=== PATIENT | male | born 1965 | race American Indian/Alaskan Native ===

== ENCOUNTER 2017-01-15 09:16 | Emergency (ER) | payer SELFPAY ==
[2017-01-15 10:55] LABS: Bilirubin,Urine NEG (Negative); Blood,Urine NEG (Negative); Ketones,Urine NEG (Negative); Leukocyte Esterase,Urine NEG (Negative); Mucus,Urine FEW /HPF; Nitrite,Urine NEG (Negative); Protein,Urine <15 mg/dL mg/dL (Negative); Urobilinogen,Urine < 2.0 mg/dL (<2.0)
[2017-01-15] MEDS ORDERED: ROCEPHIN IM ONE (13:10)
[2017-01-15] MEDS ORDERED: XYLOCAINE 1% MPF 5 mL INFILTRATI ONE (13:10)
--- NOTE | 2017-01-15 13:15 | Emergency Department Report ---
ED Male HPI - General Chief complaint: Urogenital-Male Stated complaint: ABD PAIN/BLOOD IN URINE/POSS UTI Time Seen by Provider: 01/15/17 12:54 Source: patient Mode of arrival: Ambulatory Limitations: No Limitations - History of Present Illness Initial comments: PT c/o 3 days of intermittent suprapubic pain and dysuria. PT states he has also seen some blood in his urine. PT states he is sexually active and he has not had any recent unprotected sex. PT denies penile discharge MD Complaint: dysuria Onset/Timin -: Gradual, days(s) Location: penis Severity scale (0 -10): 7 Quality: other (pt felt like he was urinating out a knife ) Consistency: intermittent Improves with: none Worsens with: urination blood in urine, dysuria. denies: discharge, swelling, mass, rash, urinary retention, nausea/vomiting - Related Data Sexually active: Yes Previous Rx's Medication Instructions Recorded Last Taken Type Doxycycline [Vibramycin CAP] 100 mg PO Q12HR #14 capsule 01/15/17 Unknown Rx Allergies Allergy/AdvReac Type Severity Reaction Status Date / Time No Known Allergies Allergy Verified 01/15/17 09:53 ED Review of Systems ROS: Stated complaint: ABD PAIN/BLOOD IN URINE/POSS UTI Other details as noted in HPI Comment: All other systems reviewed and negative Constitutional: denies: chills, fever Gastrointestinal: abdominal pain. denies: nausea, vomiting Genitourinary: dysuria, hematuria. 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 Absent: conjunctival injection - ENT ENT exam: Present: normal exam, normal external ear exam - Neck Neck exam: Present: normal inspection, full ROM. Absent: lymphadenopathy - Respiratory Respiratory exam: Present: normal lung sounds bilaterally, respiratory distress. Absent: chest wall tenderness - Cardiovascular Cardiovascular Exam: Present: regular rate, normal rhythm, normal heart sounds - GI/Abdominal GI/Abdominal exam: Present: soft. Absent: distended, tenderness, guarding, rebound - Extremities Exam Extremities exam: Present: normal inspection, full ROM - Back Exam Back exam: Present: normal inspection, full ROM. Absent: tenderness, CVA tenderness (R), CVA tenderness (L) - Neurological Exam Neurological exam: Present: alert, oriented X3, normal gait - Psychiatric Psychiatric exam: Present: normal affect, normal mood - Skin Skin exam: Present: warm, dry, intact ED Course Vital Signs 01/15/17 01/15/17 09:55 13:30 Temperature 98.7 F Pulse Rate 90 84 Respiratory 16 16 Rate Blood Pressure 143/98 Blood Pressure 140/91 [Left] O2 Sat by Pulse 99 99 Oximetry - Reevaluation(s) Reevaluation #1: 01/15/17 13:17 PT aware of UA result and plan of care. PT has no questions at this time. - Pulse Oximetry Interpretation Digit-Finger Initial Pulse Oximetry Readin Actions Taken: none ED Medical Decision Making - Lab Data Labs 01/15/17 Unknown Urine Color Yellow Urine Turbidity Clear Urine pH 5.0 Ur Specific [place] 1.025 Urine Protein <15 mg/dl Urine Glucose (UA) Neg Urine Ketones Neg Urine Blood Neg Urine Nitrite Neg Urine Bilirubin Neg Urine Urobilinogen < 2.0 Ur Leukocyte Esterase Neg Urine WBC (Auto) 1.0 Urine RBC (Auto) 6.0 U Epithel Cells (Auto) < 1.0 Urine Mucus Few - Differential Diagnosis uti, std, Critical Care Time: No Critical care attestation.: If time is entered above; I have spent that time in minutes in the direct care of this critically ill patient, excluding procedure time. ED Disposition Clinical Impression: Dysuria, Urethritis Disposition: DC-01 TO HOME OR SELFCARE Is pt being admited?: No Does the pt Need Aspirin: No Condition: Stable Instructions: Nonspecific Urethritis in Men (ED) Additional Instructions: Avoid direct sun exposure when you are on the Doxy. No sex for 7 days after treatment follow up with PCP in 3-5 days have your bp rechecked on follow up Prescriptions: Doxycycline [Vibramycin CAP] 100 mg PO Q12HR #14 capsule Referrals: PRIMARY CARE,MD [Primary Care Provider] - 3-5 Days BONNIE BURRELL MD [Staff Physician] - 3-5 Days [facility] [Outside] - 3-5 Days Forms: STI Treatment and Prevention Time of Disposition: 13:19
[2017-01-15 13:32] VITALS: BP 140/91
== END 2017-01-15 13:30 | disposition home or self-care (01) ==
LOC: ED 09:16
DX: R30.0 Dysuria (principal); N34.2 Other urethritis; F17.200 Nicotine dependence, unspecified, uncomplicated
CPT/HCPCS: 81001; 96372; 99283; J0696

== ENCOUNTER 2020-05-31 14:38 | Emergency (ER) | payer SELFPAY ==
--- NOTE | 2020-05-31 14:52 | Event Note ---
ED Screening Note Date of service: 05/31/20 Time: 14:52 ED Screening Note: Patient complains of syncopal episode and chest pain today States history of hypertension, noncompliant with blood pressure medication x5 months Denies headache This initial assessment/diagnostic orders/clinical plan/treatment(s) is/are subject to change based on patients health status, clinical progression and re- assessment by fellow clinical providers in the ED. Further treatment and workup at subsequent clinical providers discretion. Patient/guardian urged not to elope from the ED as their condition may be serious if not clinically assessed and managed. Initial orders include: Labs EKG Chest x-ray
[2020-05-31 14:53] VITALS: BP 161/98
[2020-05-31] MEDS ORDERED: ZIPRASIDONE MESYLATE 20 MG VIAL IM ONE (18:05)
== END 2020-05-31 17:00 | disposition left against medical advice (07) ==
LOC: ED 14:38
DX: R55 Syncope and collapse (principal); Z53.21 Procedure and treatment not carried out due to patient leaving prior to being seen by health care provider
CPT/HCPCS: 93005; J3486

== ENCOUNTER 2020-09-17 09:56 | Emergency (ER) | payer SELFPAY ==
[2020-09-17 10:06] VITALS: BP 143/103
[2020-09-17] MEDS ORDERED: IBUPROFEN 800 MG TAB PO ONE (10:48)
--- NOTE | 2020-09-17 10:48 | Emergency Department Report ---
ED General Adult HPI - General Chief complaint: Earache Stated complaint: JAW/EAR PAIN Time Seen by Provider: 09/17/20 10:40 Source: patient Mode of arrival: Ambulatory Limitations: No Limitations - History of Present Illness Initial comments: 55-year-old -[place] male patient presents with complaints of right sided jaw and facial pain x a few weeks. Patient states 1 day he was opening his jaw and he felt a sudden pop and had sudden pain. He states it has been a clicking noise and pain with opening and closing the jaw since. He rates his pain as a 10/10 in severity states he has not tried any OTC medications to alleviate his symptoms. The pain radiates into his right ear. He denies any headache, facial swelling, skin changes, fever/chills/sweats, or neck pain. Patient reports history of hypertension states he has been out of his amlodipine 5 mg for 1 month. Patient states he does follow with a PCP. - Related Data Previous Rx's Medication Instructions Recorded Last Taken Type DOXYCYCLINE Hyclate [Vibramycin 100 mg PO Q12HR #14 capsule 01/15/17 Unknown Rx CAP] Naproxen 500 mg PO BID PRN #14 tablet 09/17/20 Unknown Rx amLODIPine 5 mg PO DAILY 30 Days #30 tab 09/17/20 Unknown Rx methocarbamoL [Methocarbamol] 500 - 1,000 mg PO TID PRN #30 09/17/20 Unknown Rx tablet Allergies Allergy/AdvReac Type Severity Reaction Status Date / Time No Known Allergies Allergy Verified 05/31/20 14:49 ED Review of Systems ROS: Stated complaint: JAW/EAR PAIN Other details as noted in HPI Constitutional: denies: chills, diaphoresis, fever, malaise ENT: ear pain. denies: throat pain Respiratory: denies: cough, shortness of breath Cardiovascular: denies: chest pain Musculoskeletal: arthralgia. 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" - Social History Smoking Status: Current Every Day Smoker Substance Use Type: Alcohol - Medications Home Medications: Home Medications Medication Instructions Recorded Confirmed Last Taken Type DOXYCYCLINE Hyclate [Vibramycin 100 mg PO Q12HR #14 capsule 01/15/17 Unknown Rx CAP] Naproxen 500 mg PO BID PRN #14 tablet 09/17/20 Unknown Rx amLODIPine 5 mg PO DAILY 30 Days #30 tab 09/17/20 Unknown Rx methocarbamoL [Methocarbamol] 500 - 1,000 mg PO TID PRN #30 09/17/20 Unknown Rx tablet ED Physical Exam - General Limitations: No Limitations General appearance: alert, in no apparent distress - Head Head exam: Present: atraumatic, normocephalic - Eye Eye exam: Present: normal appearance. Absent: scleral icterus - ENT ENT exam: Present: normal orophraynx, TM's normal bilaterally, normal external ear exam, other (Tenderness to palpation over the right temporomandibular joint with crepitus noted; no overlying swelling or skin changes noted) - Expanded ENT Exam Expanded Mouth exam: Absent: drooling, trismus, muffled voice - Neck Neck exam: Present: normal inspection, full ROM. Absent: lymphadenopathy - Respiratory Respiratory exam: Absent: respiratory distress - Cardiovascular Cardiovascular Exam: Present: regular rate - Extremities Exam Extremities exam: Present: full ROM - Neurological Exam Neurological exam: Present: alert, oriented X3, normal gait - Psychiatric Psychiatric exam: Present: normal affect, normal mood - Skin Skin exam: Present: warm, dry, intact, normal color. Absent: rash ED Course Vital Signs 09/17/20 09:57 Temperature 98.6 F Pulse Rate 97 H Respiratory 20 Rate Blood Pressure 143/103 O2 Sat by Pulse 98 Oximetry ED Medical Decision Making - Medical Decision Making 55-year-old -[place] male patient presents with complaints of right sided jaw and facial pain x a few weeks. Patient states 1 day he was opening his jaw and he felt a sudden pop and had sudden pain. He states it has been a clicking noise and pain with opening and closing the jaw since. He rates his pain as a 10/10 in severity states he has not tried any OTC medications to alleviate his symptoms. The pain radiates into his right ear. He denies any headache, facial swelling, skin changes, fever/chills/sweats, or neck pain. Patient reports history of hypertension states he has been out of his amlodipine 5 mg for 1 month. Patient states he does follow with a PCP. History and exam consistent with right TMJ. We will try a trial of NSAIDs and muscle relaxers. Patient to follow-up with ENT for further evaluation and treatment. Patient also provided with refill of his amlodipine and counseled on importance of blood pressure management. He is well-appearing, his vitals are stable, he is stable for discharge home. Strict return precautions were discussed in detail with patient who verbalizes understanding. Critical care attestation.: If time is entered above; I have spent that time in minutes in the direct care of this critically ill patient, excluding procedure time. ED Disposition Clinical Impression: Uncontrolled hypertension TMJ arthralgia Qualifiers: Laterality: right Qualified Code(s): M26.621 - Arthralgia of right temporomandibular joint Disposition: - TO HOME OR SELFCARE Is pt being admited?: No Condition: Stable Instructions: Hypertension (ED), Temporomandibular Joint Syndrome, Hypertension, Adult, Jaw Range of Motion Exercises Prescriptions: amLODIPine 5 mg PO DAILY 30 Days #30 tab methocarbamoL [Methocarbamol] 500 - 1,000 mg PO TID PRN #30 tablet PRN Reason: muscle tightness/spasm Naproxen 500 mg PO BID PRN #14 tablet PRN Reason: pain Referrals: CARLITO ONOFRE MD [Staff Physician] - 2-3 Days PRIMARY CARE, [Primary Care Provider] - 3-5 Days
== END 2020-09-17 12:23 | disposition home or self-care (01) ==
LOC: ED 09:56
DX: M26.621 Arthralgia of right temporomandibular joint (principal); I10 Essential (primary) hypertension; F17.200 Nicotine dependence, unspecified, uncomplicated; Z98.890 Other specified postprocedural states; Z79.899 Other long term (current) drug therapy
CPT/HCPCS: 99282

== ENCOUNTER 2020-11-25 16:46 | Emergency (ER) | payer SELFPAY ==
[2020-11-25 17:07] VITALS: BP 131/76
[2020-11-25] MEDS ORDERED: TETANUS,DIPH,PERTUSS(ACELL) VACCINE 0.5 ML SYRINGE IM ONE ×2 (19:21→23:45)
[2020-11-25] MEDS ORDERED: NEOMY 3.5 MG/BACIT 400 UNITS/POLY B 5000 UNITS/GM OINT PACKET TP ONE ×2 (19:22→21:11)
--- NOTE | 2020-11-25 19:25 | Event Note ---
ED Screening Note Date of service: 11/25/20 Time: 19:22 ED Screening Note: 55-year-old male patient with history of sciatica presents to the emergency department with complaints of back pain and bilateral lower extremity pain starting yesterday. Patient states he was walking down the street in the dark when he accidentally stumbled into a manhole. He was able to brace himself using his arm in order to keep from falling. He struck both of his legs on the side of the manhole while he was bracing himself. He was able to lift himself out of the manhole. Patient never actually fell onto his back or his legs. Since the incident occurred, he has been experiencing pain in his low back with associated paresthesias in his left lower extremity, which he reports is consistent with prior sciatica flareups. He also sustained an abrasion to his left lower leg. Tetanus is not up-to-date. General: Awake, appropriately interactive, no acute distress. Neck: Supple. Full range of motion intact. Cardiovascular: Normal peripheral perfusion. Pulmonary: No respiratory distress. Patient is speaking normally without use of accessory muscles. Skin: No apparent rashes or lesions. Neurological: No facial asymmetry. Speech is clear. Follows commands. Patient is alert and oriented. Musculoskeletal: Left paraspinal lumbar tenderness. Left ankle, left lower leg, and right proximal femur tenderness. Psych: Cooperative. Appropriate mood and affect. I have greeted and performed a focused rapid initial assessment of this patient. A comprehensive ED assessment and evaluation of the patient, analysis of all test results, and completion of the medical decision-making process will be conducted by additional ED providers. This initial assessment/diagnostic orders/clinical plan/treatment(s) is/are subject to change based on patients health status, clinical progression and re-assessment. Further treatment and workup at subsequent clinical provider's discretion. Patient/guardian urged not to elope from the ED as their condition may be serious if not clinically assessed and managed.
--- NOTE | 2020-11-25 19:59 | XRay Report ---
Left femur-or views Left leg-2 views Left ankle-3 views INDICATION: fall. Fall in a hole today with generalized left leg pain COMPARISON: None. IMPRESSION: No acute fracture involving the left femur, leg, or ankle. 3 mm radiopaque foreign body which is somewhat rectangular along the popliteal fossa region. Probable old MCL injury also noted. 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 Otherwise unremarkable. Signer Name: Gian Robles MD Signed: 11/25/2020 7:54 PM Workstation Name: [id number]
[2020-11-25] MEDS ORDERED: oxyCODONE /ACETAMINOPHEN 5-325MG TAB PO ONE (21:13)
[2020-11-25] MEDS ORDERED: IBUPROFEN 600 MG TAB PO ONE (21:13)
[2020-11-25] MEDS ORDERED: ONDANSETRON 4 MG ODT TAB PO ONE (21:13)
--- NOTE | 2020-11-25 21:56 | XRay Report ---
Lumbar spine-2 views INDICATION: Pain - fall. Fall yesterday with generalized low back pain COMPARISON: None. IMPRESSION: Normal alignment. No significant discogenic DJD or facet arthropathy. No acute osseous or soft tissue abnormality. Signer Name: Gian Robles MD Signed: 11/25/2020 9:52 PM Workstation Name: [id number]
--- NOTE | 2020-11-25 22:39 | Emergency Department Report ---
ED Fall HPI - General Chief Complaint: Fall Stated Complaint: BACK/LEG PAIN Time Seen by Provider: 11/25/20 19:17 Source: patient, EMS Mode of arrival: Wheelchair - History of Present Illness Initial Comments: Patient is a 55-year-old -Iranian male with a history of hypertension and chronic low back pain with sciatica who presents to the ED with complaint of acute exacerbation of his chronic low back pain that radiates to the left leg for over 12 hours after he tripped over a manhole and fell into it over 12 hours ago. Patient states that he also has left thigh and left lower leg and ankle pain, worse with ambulation or any active range of motion and also sustained a mild anterior left lower leg abrasion wound. Patient denies head or neck injuries, dizziness, syncope, seizures, loss of consciousness, chest pain or shortness of breath, numbness and tingling or weakness of upper and lower extremities bilaterally, vision changes, urinary retention or bowel incontinence and saddle paresthesia. MD Complaint: fall -: Sudden, hour(s) (12) Fall From: standing, other (Walking on the street, tripped and fell into a manhole) When Fall Occurred: other (12 hours ago) Fall Witnessed: no Place Fall Occurred: street Loss of Consciousness: none Prolonged Down Time?: no Symptoms Prior to Fall: none Location: back (lower back pain), other (left leg pain) Location - Extremities: Left: Leg (left leg), Ankle (left leg) Severity: severe Severity scale (0 -10): 8 Quality: sharp, aching Context: tripped/slipped Associated Symptoms: denies: denies, headache, neck pain, numbness, weakness, chest paint, shortness of breath, abdominal pain, hematuria, unable to walk, lightheaded, vertigo, confusion, other - Related Data Previous Rx's Medication Instructions Recorded Last Taken Type DOXYCYCLINE Hyclate [Vibramycin 100 mg PO Q12HR #14 capsule 01/15/17 Unknown Rx CAP] amLODIPine 5 mg PO DAILY 30 Days #30 tab 09/17/20 Unknown Rx Naproxen 500 mg PO BID PRN #30 tablet 11/25/20 Unknown Rx methocarbamoL [Methocarbamol] 500 - 1,000 mg PO TID PRN #30 11/25/20 Unknown Rx tablet traMADoL [Ultram] 50 mg PO Q6HR PRN #12 tablet 11/25/20 Unknown Rx Allergies Allergy/AdvReac Type Severity Reaction Status Date / Time No Known Allergies Allergy Verified 11/25/20 17:01 ED Review of Systems ROS: Stated complaint: BACK/LEG PAIN Other details as noted in HPI Constitutional: denies: chills, fever Eyes: denies: eye pain, eye discharge, vision change ENT: denies: ear pain, throat pain Respiratory: denies: cough, shortness of breath, wheezing Cardiovascular: denies: chest pain, palpitations Endocrine: no symptoms reported Gastrointestinal: denies: abdominal pain, nausea, diarrhea Genitourinary: denies: urgency, dysuria Musculoskeletal: back pain ( low back pain), arthralgia (left thigh, left lower leg, left ankle pain), myalgia. denies: joint swelling Skin: other (left lower leg abrasion wound). 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" - Social History Smoking Status: Never Smoker Substance Use Type: None - Medications Home Medications: Home Medications Medication Instructions Recorded Confirmed Last Taken Type DOXYCYCLINE Hyclate [Vibramycin 100 mg PO Q12HR #14 capsule 01/15/17 Unknown Rx CAP] amLODIPine 5 mg PO DAILY 30 Days #30 tab 09/17/20 Unknown Rx Naproxen 500 mg PO BID PRN #30 tablet 11/25/20 Unknown Rx methocarbamoL [Methocarbamol] 500 - 1,000 mg PO TID PRN #30 11/25/20 Unknown Rx tablet traMADoL [Ultram] 50 mg PO Q6HR PRN #12 tablet 11/25/20 Unknown Rx ED Physical Exam - General Limitations: No Limitations General appearance: alert, in no apparent distress - Head Head exam: Present: atraumatic, normocephalic, normal inspection - Eye Eye exam: Present: normal appearance, PERRL, EOMI Pupils: Present: normal accommodation - ENT ENT exam: Present: normal exam, normal orophraynx, mucous membranes moist, TM's normal bilaterally, normal external ear exam - Neck Neck exam: Present: normal inspection, full ROM - Respiratory Respiratory exam: Present: normal lung sounds bilaterally. Absent: respiratory distress, wheezes, rales, rhonchi, chest wall tenderness, accessory muscle use, decreased breath sounds, prolonged expiratory - Cardiovascular Cardiovascular Exam: Present: regular rate, normal rhythm, normal heart sounds. Absent: systolic murmur, diastolic murmur, rubs, gallop - GI/Abdominal GI/Abdominal exam: Present: soft, normal bowel sounds. Absent: tenderness, guarding, hyperactive bowel sounds, hypoactive bowel sounds, organomegaly - Extremities Exam Extremities exam: Present: normal inspection, full ROM, tenderness (Palpable left thigh, left lower leg and left ankle tenderness), normal capillary refill, calf tenderness. Absent: pedal edema, joint swelling - Back Exam Back exam: Present: normal inspection, full ROM, tenderness (Palpable lumb osacral paraspinal musculoskeletal tenderness), muscle spasm, paraspinal tenderness. Absent: CVA tenderness (R), CVA tenderness (L), vertebral tenderness, rash noted - Neurological Exam Neurological exam: Present: alert, oriented X3, CN II-XII intact, normal gait, reflexes normal - Psychiatric Psychiatric exam: Present: normal affect, normal mood - Skin Skin exam: Present: warm, dry, intact, normal color. Absent: rash ED Course Vital Signs 11/25/20 17:01 Temperature 97.8 F Pulse Rate 84 Respiratory 20 Rate Blood Pressure 131/76 O2 Sat by Pulse 98 Oximetry ED Medical Decision Making - Radiology Data Radiology results: report reviewed, image reviewed [facility] [address] [place] [address] XRay Report Signed Patient: HERACLIO SPRINGER MR#: [id number] : 1965 Acct:[id number] Age/Sex: 55 / M ADM Date: 11/25/20 Loc: ED Attending Dr: Ordering Physician: TIN CAR Date of Service: 11/25/20 Procedure(s): XR ankle 3+V LT Accession Number(s): [id number] cc: TIN CAR Fluoro Time In Minutes: Left femur-or views Left leg-2 views Left ankle-3 views INDICATION: fall. Fall in a hole today with generalized left leg pain COMPARISON: None. IMPRESSION: No acute fracture involving the left femur, leg, or ankle. 3 mm radiopaque foreign body which is somewhat rectangular along the popliteal fossa region. Probable old MCL injury also noted. 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 Otherwise unremarkable. Signer Name: Gian Robles MD Signed: 11/25/2020 7:54 PM Workstation Name: [id number] Transcribed By: MEJIA Dictated By: Gian Robles MD Electronically Authenticated By: Gian Robles MD Signed Date/Time: 11/25/201953 DD/ 51 TD/TT: [facility] [address] [place] [address] XRay Report Signed Patient: HERACLIO SPRINGER MR#: [id number] : 1965 Acct:[id number] Age/Sex: 55 / M ADM Date: 11/25/20 Loc: ED Attending Dr: Ordering Physician: TIN JARRETT Date of Service: 11/25/20 Procedure(s): XR spine lumbosacral 2-3V Accession Number(s): [id number] cc: TIN JARRETT Fluoro Time In Minutes: Lumbar spine-2 views INDICATION: Pain - fall. Fall yesterday with generalized low back pain COMPARISON: None. IMPRESSION: Normal alignment. No significant discogenic DJD or facet arthropathy. No acute osseous or soft tissue abnormality. Signer Name: Gian Robles MD Signed: 11/25/2020 9:52 PM Workstation Name: [id number] Transcribed By: MEJIA Dictated By: Gian Robles MD Electronically Authenticated By: Gian Robles MD Signed Date/Time: 11/25/202151 DD/ 51 TD/TT: - Medical Decision Making This is a 55-year-old -Iranian male with a history of hypertension and chronic low back pain with sciatica who presents to the ED with complaint of acute exacerbation of his chronic low back pain that radiates to the left leg for over 12 hours after he tripped over a manhole and fell into it over 12 hours ago. Patient states that he also has left thigh and left lower leg and ankle pain, worse with ambulation or any active range of motion and also sustained a mild anterior left lower leg abrasion wound. In the ED, patient is alert and oriented x3 and is not in any distress but appears to be in pain. Patient received pain medications in the ED for his pain and also received booster tetanus vaccinations. The L-spine x-ray shows no acute fractures or subluxation but chronic degenerative disc disease. The left femur, left tib-fib and left ankle x-rays showed no acute fractures and subluxations. On reevaluation, patient's pain is well controlled medications. Patient was discharged home on pain medications and advised to follow-up with his primary care physician in 5 to 7 days for reevaluation. - Differential Diagnosis Muscle spasm; muscle strain; sciatica; chronic pain; leg contusion Critical care attestation.: If time is entered above; I have spent that time in minutes in the direct care of this critically ill patient, excluding procedure time. ED Disposition Clinical Impression: Contusion of left lower leg, initial encounter, Acute exacerbation of chronic low back pain, Spasm of muscle of lower back Chronic low back pain with left-sided sciatica Qualifiers: Back pain laterality: bilateral Qualified Code(s): M54.42 - Lumbago with sciatica, left side; G89.29 - Other chronic pain Disposition: - TO HOME OR SELFCARE Is pt being admited?: No Does the pt Need Aspirin: No Condition: Stable Instructions: Muscle Cramps and Spasms, [id number], Back Injury Prevention, [id number], Chronic Back Pain, [id number], Sciatica, [id number] Additional Instructions: The L-spine x-ray showed no acute fractures or subluxations. The left femur, left ankle and left tib-fib also showed no acute fractures and subluxations. Based on the history and physical exam findings, and imaging reports your symptoms are likely due to muscle strain and muscle spasm as well as contusion of left leg and acute exacerbation of your chronic low back pain with sciatica. Therefore take medications with food, drink plenty of fluids and follow-up with your primary care physician in 5 to 7 days for reevaluation. Return to the ED immediately if symptoms get worse. Prescriptions: methocarbamoL [Methocarbamol] 500 - 1,000 mg PO TID PRN #30 tablet PRN Reason: muscle tightness/spasm Naproxen 500 mg PO BID PRN #30 tablet PRN Reason: pain traMADoL [Ultram] 50 mg PO Q6HR PRN #12 tablet PRN Reason: Pain Referrals: [facility] [Provider Group] - 3-5 Days Time of Disposition: 22:50 Print Language: ANDORRAN
== END 2020-11-25 23:40 | disposition home or self-care (01) ==
LOC: ED 16:46
DX: S80.12XA Contusion of left lower leg, initial encounter (principal); M54.42 Lumbago with sciatica, left side; G89.29 Other chronic pain; M62.830 Muscle spasm of back; I10 Essential (primary) hypertension; Z98.890 Other specified postprocedural states; Z79.899 Other long term (current) drug therapy; W01.0XXA Fall on same level from slipping, tripping and stumbling without subsequent striking against object, initial encounter; Y93.89 Activity, other specified; Y92.89 Other specified places as the place of occurrence of the external cause; Y99.8 Other external cause status
CPT/HCPCS: 72100; 73552; 73590; 73610; 90471; 90715; 99284; A6250; Q0162